=== PATIENT | male | born 1940 | race Caucasian/White ===

== ENCOUNTER 2016-12-01 02:33 | Emergency (ER) | payer MEDICARE, OTHER | END 2016-12-01 04:12 | disposition home or self-care (01) | LOC: FER 02:33 | DX: T18.128A Food in esophagus causing other injury, initial encounter (principal); Z87.19 Personal history of other diseases of the digestive system ==

== ENCOUNTER 2016-12-19 17:47 | Emergency (ER) | payer MEDICARE, OTHER | END 2016-12-19 20:55 | disposition home or self-care (01) | LOC: FER 17:47 | DX: R13.10 Dysphagia, unspecified (principal); Z88.6 Allergy status to analgesic agent | CPT/HCPCS: 99283 ==

== ENCOUNTER 2021-01-22 17:00 | Emergency (ER) | payer OTHER, MEDICARE ==
[~2021-01-22 17:00] MED LIST: BACTRIM DS TAB1 EACH PO; CLARITIN10 M1 PO; PERCOCET 5-3251 EACH PO; PREDNISONE 20MG20 MG PO; TUMS300 MG PO
[2021-01-22 19:44] LABS: BASOPHIL 0.8 % (0-2); EOSINOPHIL 0.1 % (0-7); HCT 46.8 % (42.0-52.0); HGB 15.2 g/dl (13.2-18.0); LYMPHOCYTE 9.2 % (15-48); MCH 28.3 pg (25.0-31.0); MCHC 32.5 g/dL (32.0-36.0); MCV 87.2 fL (78.0-100.0); MONOCYTE 6.8 % (0-12); NEUTROPHIL 82.5 % (41-80); NRBC 0; PLT 313 K/uL (150-400); RBC 5.37 M/uL (4.70-6.00); RDW 15.8 % (11.5-14.0); WBC 10.5 K/uL (4.0-10.5)
[2021-01-22 20:01] LABS: BILIRUBIN - TOTAL 0.9 mg/dL (0.2-1.0); BUN/CREAT RATIO (CALC) 20.6 RATIO; CREATININE 1.02 mg/dL (0.67-1.17); GLOBULIN (CALCULATION) 4.4 g/dL; POTASSIUM 4.1 mmol/L (3.5-5.1); TOTAL PROTEIN 8.4 g/dL (6.4-8.2)
[2021-01-22 20:09] LABS: BILIRUBIN NEGATIVE (NEGATIVE); BLOOD NEGATIVE Ery/uL (NEGATIVE); CLARITY CLEAR (CLEAR); COLOR YELLOW (YELLOW); GLUCOSE (U) NORMAL (NORMAL); LEUKOCYTES NEGATIVE Leu/uL (NEGATIVE); NITRITE NEGATIVE (NEGATIVE); PROTEIN NEGATIVE (NEGATIVE); UROBILINOGEN 0.2 mg/dL (0.2-1.0); pH 6.5 (5.0-9.0)
[2021-01-22] MEDS ORDERED: CYCLOBENZAPRINE10 MG PO (22:33)
[2021-01-22] MEDS ORDERED: NORCO 5-325 TA1 EACH PO (22:33)
[2021-01-23] MEDS ORDERED: CYCLOBENZAPRINE10 MG PO (17:08)
[2021-01-23] MEDS ORDERED: NORCO 5-325 TA1 EACH PO (17:08)
== END 2021-01-22 22:51 | disposition home or self-care (01) ==
LOC: FER 17:00
PROVIDERS: Emergency Medicine Emergency Medical Services
DX: S20.211A Contusion of right front wall of thorax, initial encounter (principal); R10.84 Generalized abdominal pain; Z88.0 Allergy status to penicillin; V49.50XA Passenger injured in collision with unspecified motor vehicles in traffic accident, initial encounter; Y92.410 Unspecified street and highway as the place of occurrence of the external cause
CPT/HCPCS: 36415; 70450; 71260; 72125; 72128; 72131; 73110; 80053; 81003; 82150; 83605; 83690; 84484; 85025; 93005; 94640; 94664; J1100; J1170; J1885; J2405; Q9967

== ENCOUNTER 2021-08-15 14:24 | Inpatient (IN) | payer MEDICARE, OTHER ==
[~2021-08-15] VITALS: Ht 144.8 cm; Wt 44.6 kg
[~2021-08-15 14:24] MED LIST changes: +CYCLOBENZAPRINE10 MG PO; +NORCO 5-325 TA1 EACH PO
[2021-08-15 15:42] LABS: BASOPHIL 0.6 % (0-2); EOSINOPHIL 0 % (0-7); HCT 41.2 % (42.0-52.0); HGB 13.5 g/dl (13.2-18.0); LYMPHOCYTE 8.8 % (15-48); MCH 29.5 pg (25.0-31.0); MCHC 32.8 g/dL (32.0-36.0); MCV 90.2 fL (78.0-100.0); MONOCYTE 5.2 % (0-12); MPV 9.2 fL (6.0-9.5); NEUTROPHIL 85.1 % (41-80); NRBC 0; PLT 352 K/uL (150-400); RBC 4.57 M/uL (4.70-6.00); WBC 13.1 K/uL (4.0-10.5)
[2021-08-15 15:50] LABS: BILIRUBIN NEGATIVE (NEGATIVE); BLOOD 3+ Ery/uL (NEGATIVE); CLARITY CLEAR (CLEAR); COLOR YELLOW (YELLOW); GLUCOSE (U) 1+ mg/dL (NORMAL); LEUKOCYTES NEGATIVE Leu/uL (NEGATIVE); NITRITE NEGATIVE (NEGATIVE); PROTEIN NEGATIVE (NEGATIVE)
[2021-08-15 15:59] LABS: ALBUMIN 3.7 g/dL (3.4-5.0); BILIRUBIN - TOTAL 0.8 mg/dL (0.2-1.0); BUN/CREAT RATIO (CALC) 27.7 RATIO; CREATININE 0.83 mg/dL (0.67-1.17); GLOBULIN (CALCULATION) 3.4 g/dL; POTASSIUM 4.2 mmol/L (3.5-5.1); TOTAL PROTEIN 7.1 g/dL (6.4-8.2)
[2021-08-15 15:59] LABS: BACTERIA TRACE; MUCOUS MODERATE; URINARY RBC 20-50; URINARY WBC RARE
[2021-08-15 16:03] LABS: LACTIC ACID 1.5 mmol/L (0.4-1.9)
[2021-08-15 16:23] LABS: CORONAVIRUS 2019 SARS-COV-2 NEGATIVE (NEGATIVE); INFLUENZA A NAA NEGATIVE (NEGATIVE)
[2021-08-15 21:13] LABS: BILIRUBIN NEGATIVE (NEGATIVE); BLOOD 2+ Ery/uL (NEGATIVE); CLARITY CLEAR (CLEAR); COLOR YELLOW (YELLOW); GLUCOSE (U) 1+ mg/dL (NORMAL); LEUKOCYTES NEGATIVE Leu/uL (NEGATIVE); NITRITE NEGATIVE (NEGATIVE); PROTEIN NEGATIVE (NEGATIVE); SPECIFIC GRAVITY 1.025 (1.001-1.030)
[2021-08-15 21:27] LABS: BACTERIA TRACE; MUCOUS MODERATE; URINARY RBC 20-50
[2021-08-16 06:07] LABS: BASOPHIL 0.3 % (0-2); EOSINOPHIL 0 % (0-7); HCT 33.2 % (42.0-52.0); HGB 10.7 g/dl (13.2-18.0); LYMPHOCYTE 4.4 % (15-48); MCH 29.6 pg (25.0-31.0); MCHC 32.2 g/dL (32.0-36.0); MCV 91.7 fL (78.0-100.0); MONOCYTE 3.4 % (0-12); NRBC 0; PLT 219 K/uL (150-400); RBC 3.62 M/uL (4.70-6.00); WBC 6.8 K/uL (4.0-10.5)
[2021-08-16 06:23] LABS: INR 1.15 (0.9-1.2); PROTHROMBIN TIME 14.1 SECONDS (11.8-13.4)
[2021-08-16 06:32] LABS: ALBUMIN 2.7 g/dL (3.4-5.0); BILIRUBIN - TOTAL 0.4 mg/dL (0.2-1.0); BUN/CREAT RATIO (CALC) 22.2 RATIO; CREATININE 0.72 mg/dL (0.67-1.17); GLOBULIN (CALCULATION) 3.4 g/dL; POTASSIUM 3.7 mmol/L (3.5-5.1); TOTAL PROTEIN 6.1 g/dL (6.4-8.2)
[2021-08-18 06:00] LABS: BASOPHIL 0.7 % (0-2); EOSINOPHIL 0 % (0-7); HCT 34.3 % (42.0-52.0); HGB 11.3 g/dl (13.2-18.0); LYMPHOCYTE 9.1 % (15-48); MCH 29.7 pg (25.0-31.0); MCHC 32.9 g/dL (32.0-36.0); MCV 90.3 fL (78.0-100.0); MONOCYTE 7.2 % (0-12); MPV 9.3 fL (6.0-9.5); NEUTROPHIL 81.9 % (41-80); NRBC 0; PLT 243 K/uL (150-400); RDW 16.8 % (11.5-14.0); WBC 4.6 K/uL (4.0-10.5)
[2021-08-18 06:39] LABS: BUN/CREAT RATIO (CALC) 14.3 RATIO; CREATININE 0.77 mg/dL (0.67-1.17); POTASSIUM 3.4 mmol/L (3.5-5.1)
[2021-08-21 07:02] LABS: BASOPHIL 0.9 % (0-2); EOSINOPHIL 0 % (0-7); HCT 37.5 % (42.0-52.0); LYMPHOCYTE 19.4 % (15-48); MCH 29.1 pg (25.0-31.0); MONOCYTE 6.7 % (0-12); MPV 9.2 fL (6.0-9.5); NEUTROPHIL 69.8 % (41-80); NRBC 0; PLT 291 K/uL (150-400); RBC 4.12 M/uL (4.70-6.00); RDW 16.6 % (11.5-14.0); WBC 7.5 K/uL (4.0-10.5)
[2021-08-21 07:05] LABS: BUN/CREAT RATIO (CALC) 27.2 RATIO; CREATININE 0.81 mg/dL (0.67-1.17); POTASSIUM 3.9 mmol/L (3.5-5.1)
[2021-08-23] MEDS ORDERED: LEVAQUIN500 MG PO (10:24)
[2021-08-23] MEDS ORDERED: MUCINEX 600MG600 MG PO (10:24)
[2021-08-23] MEDS ORDERED: MIRALAX17 GM PO (10:24)
[2021-08-23] MEDS ORDERED: PREDNISONE 20MG20 MG PO (10:24)
[2021-08-23] MEDS ORDERED: DUONEB 2.5-0.5M1 AMP NEB (10:24)
[2021-08-24] MEDS ORDERED: CEFDINIR300 MG PO (13:10)
== END 2021-08-23 13:45 | disposition home health service (06) | DRG 189 ==
LOC: FER 14:24 → FMS 17:46
PROVIDERS: Emergency Medicine; Nurse Practitioner; ADMIT Internal Medicine
DX: J96.01 Acute respiratory failure with hypoxia (principal); R65.10 Systemic inflammatory response syndrome (SIRS) of non-infectious origin without acute organ dysfunction; T83.83XA Hemorrhage due to genitourinary prosthetic devices, implants and grafts, initial encounter; Z23 Encounter for immunization; J43.2 Centrilobular emphysema; Z20.822 Contact with and (suspected) exposure to COVID-19; R13.10 Dysphagia, unspecified; L89.152 Pressure ulcer of sacral region, stage 2; R31.9 Hematuria, unspecified; G80.9 Cerebral palsy, unspecified; R73.9 Hyperglycemia, unspecified; Z88.0 Allergy status to penicillin; Z88.8 Allergy status to other drugs, medicaments and biological substances; Z87.891 Personal history of nicotine dependence; Z98.890 Other specified postprocedural states; Z91.010 Allergy to peanuts; Z90.49 Acquired absence of other specified parts of digestive tract; Y84.6 Urinary catheterization as the cause of abnormal reaction of the patient, or of later complication, without mention of misadventure at the time of the procedure
CPT/HCPCS: 36415; 36600; 71045; 71250; 74230; 80048; 80053; 81001; 82803; 83036; 83605; 84145; 85025; 85610; 87040; 87077; 87088; 87186; 90732; 92611; 93005; 94010; 94640; 94760; 94762; A4216; G0008; G0378; J1650; J1956; J2185; J2405; J2930; J7030; J7040; J7512; U0002